=== PATIENT | male | born 1945 | race Caucasian/White ===

== ENCOUNTER 2023-11-03 16:18 | Emergency (ER) | payer MEDICARE, SELFPAY ==
[2023-11-03] VITALS (11 sets, daily range): BP systolic 159–220; BP diastolic 90–109; PULSE 73–86; TEMP 36.6; O2SAT 97–99
--- NOTE | 2023-11-03 16:31 | ECG_ITS ---
[facility] Test Date: 2023-11-03 Pat Name: SHUKRI RDZ Department: Room: - Gender: Male Rn Tele: : 1945 Requested By: Order Number: [id number] Reading MD: TAD MAX Measurements Intervals [place] Rate: 89 P: -[id number] MI: -[id number] QRS: 54 QRSD: 96 T: 30 QT: 396 QTc: 443 Interpretive Statements 1210 Atrial fibrillation 9140 abnormal rhythm ECG No previous ECG available for comparison Electronically Signed On 11-03-2023 23:03:39 EDT by TAD MAX
--- NOTE | 2023-11-03 16:33 | ED_ITS ---
HPI HPI - Head Injury General Chief complaint: Head Injury Stated complaint: Head Injury Time Seen by Provider: 11/03/23 16:21 Source: patient Mode of arrival: walk-in History of Present Illness HPI Narrative: Patient is a 78-year-old male who presents to the emergency department for the evaluation of pain in the top of the head after head injury 5 days ago. He states that he was in a [place] when the top of the door hit him in the top of the head when he leaned out. He had no loss of consciousness or other associated injuries. He states he has been taking Motrin to help with pain and presented to the ER today because he is concerned he is taking too much Motrin. He denies visual changes, neck pain, peripheral paresthesias, chest pain, shortness of breath, vomiting. Patient states he does not have high blood pressure and does not take any medications for high blood pressure although he is noted to be significantly hypertensive at initial interview. Related Data Home Medications ?Medication ?Instructions ?Recorded ?Confirmed ferrous sulfate 325 mg (65 mg 325 mg PO DAILY 11/03/23 11/03/23 iron) tablet (Iron (ferrous sulfate)) Previous Rx's ?Medication ?Instructions ?Recorded metoprolol succinate 50 mg 50 mg PO DAILY #14 tabs 11/03/23 tablet,extended release 24 hr tramadol 50 mg tablet 50 mg PO Q4H PRN pain 3 days #12 11/03/23 tabs Allergies Allergy/AdvReac Type Severity Reaction Status Date / Time No Known Drug Allergies Allergy Verified 11/03/23 16:26 Opioid HPI Opioid Management Most Recent Pain and Opioid Data: Last Pain Scale 5 11/03/23 17:16 Last ED Pain Assessment 11/03/23 17:16 Review of Systems ROS Constitutional Denies: fever or chills Ears, nose, mouth, and throat Denies: throat pain or nasal congestion Cardiovascular Denies: chest pain Respiratory Denies: shortness of breath Gastrointestinal Denies: nausea or vomiting Musculoskeletal Denies: back pain or neck pain Integumentary/Breast Denies: rash Neurological Reports: headache; Denies: numbness in extremities or weakness in extremities Hematologic/Lymphatic Denies: easy bruising or easy bleeding [facility] Medical History (Updated 11/03/23 @ 18:20 by MARIXA Winn) A-fib ?I48.91 - Unspecified atrial fibrillation (ICD-10) H/O: hypertension ?Z86.79 - Personal history of other diseases of the circulatory system (ICD- 10) Exam Narrative Exam Narrative: Gen.: Awake, alert, in no distress Head: Normocephalic, atraumatic; no scalp hematoma, no abrasions or lacerations noted ENT: Moist mucous membranes; C-spine nontender Respiratory: No respiratory distress, lungs clear bilaterally Cardio: Regular rate and rhythm Extremities: Moves extremities equally, no injuries noted Psych: Normal mood and affect Neuro: No focal neuro deficit Skin: Warm, dry, intact Constitutional Vital Signs, click to edit/add: Last Vital Signs Temp 97.9 F 11/03/23 16:27 Pulse 82 11/03/23 17:46 Resp 22 H 11/03/23 17:46 BP 168/104 H 11/03/23 17:46 Pulse Ox 99 11/03/23 17:46 O2 Del Method Room Air 11/03/23 17:15 Course Vital Signs Vital signs: Vital Signs Temperature 97.9 F 11/03/23 16:27 Pulse Rate 80 11/03/23 16:27 Respiratory Rate 18 11/03/23 16:27 Blood Pressure 220/90 H 11/03/23 16:27 Pulse Oximetry 99 11/03/23 16:27 Oxygen Delivery Method Room Air 11/03/23 16:27 Temperature 97.9 F 11/03/23 16:27 Pulse Rate 82 11/03/23 17:46 Respiratory Rate 22 H 11/03/23 17:46 Blood Pressure 168/104 H 11/03/23 17:46 Pulse Oximetry 99 11/03/23 17:46 Oxygen Delivery Method Room Air 11/03/23 17:15 MDM - Head Injury MDM Narrative Medical decision making narrative: Patient noted to be hypertensive on arrival, CT of the brain is unremarkable, chest x-ray shows no evidence of acute cardiopulmonary changes. EKG shows rate controlled atrial fibrillation. Patient states he has a history of this. He did state to nursing staff that he is supposed to be on blood pressure medication but does not like the way it makes him feel. He was given IV labetalol and Vasotec with improvement of his blood pressure. Laboratory studie s within normal limits. Patient is put back on metoprolol for home, short course of analgesics for headache. Follow-up closely with PCP for further evaluation and treatment and return to the ER if symptoms change or worsen. He is resting comfortably with no focal neurodeficits or severe headache on reevaluation. SUPERVISED APC VISIT, PHYSICIAN ATTESTATION: Based on the medical record the care appears appropriate. ? Medical Records Attestation: I reviewed the patient's medical records. Lab Data Attestation: I reviewed the patient's lab results. Labs: Lab Results 11/03/23 Range/Units 16:48 WBC 6.9 (4.0-11.0) 10^3/uL RBC 5.25 (4.70-6.10) 10^6/uL Hgb 15.0 (14.0-18.0) g/dL Hct 47.2 (42.0-54.0) % MCV 89.9 (80.0-94.0) fL MCH 28.6 (25.9-34.0) pg MCHC 31.8 (29.9-35.2) g/dL RDW 17.5 H (11.0-15.0) % Plt Count 199 (150-450) 10^3/uL MPV 11.2 (9.5-13.5) fL Neut % (Auto) 68.4 (43.0-75.0) % Lymph % (Auto) 15.3 L (20.5-60.0) % [place] % (Auto) 12.5 H (1.7-12.0) % Eos % (Auto) 2.5 (0.9-7.0) % Baso % (Auto) 1.0 (0.2-2.0) % Neut # (Auto) 4.7 (1.4-6.5) 10^3/uL Lymph # (Auto) 1.1 L (1.2-3.8) 10^3/uL [place] # (Auto) 0.9 H (0.3-0.8) 10^3/uL Eos # (Auto) 0.2 (0.0-0.7) 10^3/uL Baso # (Auto) 0.1 (0.0-0.1) 10^3/uL Abs Immat Gran (auto) 0.02 (0.00-0.03) 10^3/uL Imm/Tot Granulo (auto) 0.3 (0.0-0.5) % PT 11.2 (9.0-11.6) sec INR 1.06 Sodium 139 (136-145) mmol/L Potassium 4.1 (3.5-5.1) mmol/L Chloride 104 (98-107) mmol/L Carbon Dioxide 31.0 (21.0-32.0) mmol/L Anion Gap 8.1 BUN 26.0 H (7.0-18.0) mg/dL Creatinine 1.55 H (0.70-1.30) mg/dL Est GFR ( Amer) 53 L (>=60) Est GFR (Non-Af Amer) 44 L (>=60) BUN/Creatinine Ratio 16.8 Glucose 97 (74-106) mg/dL Calcium 9.1 (8.5-10.1) mg/dL Total Bilirubin 0.5 (0.2-1.0) mg/dL AST 15 (15-37) U/L ALT 11 L (16-63) U/L Alkaline Phosphatase 71 (46-116) U/L Troponin I High Sens 15.7 (4.0-76.1) pg/mL Total Protein 7.6 (6.4-8.2) g/dL Albumin 3.7 (3.4-5.0) g/dL Globulin 3.9 g/dL Albumin/Globulin Ratio 0.[address] scan - head: Attestation: I have reviewed the pertinent imaging results. Radiologist's impression: ITS Impressions Head CT 11/03/23 17:03 IMPRESSION: No acute intracranial abnormalities. Electronically authenticated by: LUANN ARREDONDO Date: 11/03/2023 17:54 ECG Data Attestation: I personally reviewed and interpreted this ECG as follows: (Atrial fibrillation at a rate of 89, no acute ST elevation or ectopy. EKG reviewed by attending physician) Discharge Plan Discharge Chief Complaint: Head Injury Clinical Impression: Closed head injury, Hypertension Patient Disposition: Home, Self-Care Time of Disposition Decision: 18:20 Condition: Good Prescriptions / Home Meds: New tramadol 50 mg tablet 50 mg PO Q4H PRN (Reason: pain) 3 Days Qty: 12 0RF Rx Instructions: R51.9 metoprolol succinate 50 mg tablet extended release 24 hr 50 mg PO DAILY Qty: 14 0RF No Action ferrous sulfate [Iron (ferrous sulfate)] 325 mg (65 mg iron) tablet 325 mg PO DAILY Print Language: Grenadian Instructions: Head Injury (ED), Hypertension (ED) Additional Instructions: Please follow-up with your doctor for reevaluation of your blood pressure and additional medicine as needed. Referrals: Physician,Non-Staff, [Primary Care Provider] - 1 week
[2023-11-03 16:55] LABS: Basophils Absolute Auto 0.1 10^3/uL (0.0-0.1); Eosinophils Absolute Auto 0.2 10^3/uL (0.0-0.7); Eosinophils Percent Auto 2.5 % (0.9-7.0); Hematocrit 47.2 % (42.0-54.0); Immature Granulocytes Abs Auto 0.02 10^3/uL (0.00-0.03); Immature Granulocytes Pct Auto 0.3 % (0.0-0.5); Lymphocytes Absolute Auto 1.1 10^3/uL (1.2-3.8); Lymphocytes Percent Auto 15.3 % (20.5-60.0); Mean Corpuscular HGB Conc 31.8 g/dL (29.9-35.2); Mean Corpuscular Hemoglobin 28.6 pg (25.9-34.0); Mean Corpuscular Volume 89.9 fL (80.0-94.0); Mean Platelet Volume 11.2 fL (9.5-13.5); Monocytes Absolute Auto 0.9 10^3/uL (0.3-0.8); Monocytes Percent Auto 12.5 % (1.7-12.0); Neutrophils Absolute Auto 4.7 10^3/uL (1.4-6.5); Neutrophils Percent Auto 68.4 % (43.0-75.0); Platelet Count 199 10^3/uL (150-450); Red Blood Count 5.25 10^6/uL (4.70-6.10); Red Cell Distribution Width 17.5 % (11.0-15.0); White Blood Count 6.9 10^3/uL (4.0-11.0)
[2023-11-03] MEDS: LABETALOL HCL 20 MG/4 ML SYRINGE IVP (17:02)
--- NOTE | 2023-11-03 17:03 | CT_ITS ---
The [address] [address] Patient Name: SHUKRI RDZ MRN: [id number] date: 1945 Sex: M Assigned Patient Location: ER Current Patient Location: ER Accession/Order Number: [id number] Exam Date: 11/03/2023 17:00 Report Date: 11/03/2023 17:54 At the request of: ANAHI WEINER Procedure: CT head/brain wo con EXAM: CT scan of the head without contrast. Dose reduction technique used: Automated exposure control and/or adjustment of the mA and/or kV according to patient size and/or use of iterative reconstruction technique. REASON FOR EXAM: Head injury COMPARISON: None FINDINGS: No intracranial hemorrhage, mass effect, midline shift, fractures or evidence of acute ischemic infarct. No hydrocephalus. 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 Moderate generalized cerebral and cerebellar volume loss. Moderate small vessel gliosis. Paranasal sinuses and mastoid air cells are clear. Remainder unremarkable. CT/CT head/brain wo con IMPRESSION: No acute intracranial abnormalities. Electronically authenticated by: LUANN ARREDONDO Date: 11/03/2023 17:54
[2023-11-03] MEDS: ENALAPRILAT DIHYDRATE 1.25 MG/ML VIAL IV (17:09)
[2023-11-03 17:16] LABS: INR 1.06; Prothrombin Time 11.2 sec (9.0-11.6)
[2023-11-03 17:25] LABS: Alanine Aminotransferase 11 U/L (16-63); Albumin Globulin Ratio 0.9; Albumin Level 3.7 g/dL (3.4-5.0); Alkaline Phosphatase 71 U/L (46-116); Anion Gap 8.1; Aspartate Amino Transferase 15 U/L (15-37); BUN Creatinine Ratio 16.8; Bilirubin Total 0.5 mg/dL (0.2-1.0); Calcium 9.1 mg/dL (8.5-10.1); Chloride 104 mmol/L (98-107); Estimated GFR (African America 53 (>=60); Estimated GFR (Non-African Ame 44 (>=60); Globulin 3.9 g/dL; Glucose 97 mg/dL (74-106); Potassium 4.1 mmol/L (3.5-5.1); Sodium 139 mmol/L (136-145); Total Protein 7.6 g/dL (6.4-8.2)
[2023-11-03 17:27] LABS: Troponin I High Sensitivity 15.7 pg/mL (4.0-76.1)
--- NOTE | 2023-11-03 17:51 | PC.NURSE ---
i walked into this patient's room to find patient awake and alert sitting upright on the bed reading a note pad. I did introduced myself to this patient and patient awake that we are waiting on all of the test results to come back. this patient voices no needs and shows no signs of distress.
--- NOTE | 2023-11-03 17:55 | XR_ITS ---
The [address] [address] Patient Name: SHUKRI RDZ MRN: [id number] date: 1945 Sex: M Assigned Patient Location: ER Current Patient Location: ED.MAIN Accession/Order Number: [id number] Exam Date: 11/03/2023 17:50 Report Date: 11/03/2023 18:28 At the request of: ANAHI WEINER Procedure: XR chest 1V Exam: Radiographs: XR chest 1V Reason for exam: Hypertension Comparison: None XR/XR chest 1V IMPRESSION: Multiple old bilateral rib fractures. Chest is otherwise unremarkable. Electronically authenticated by: LUANN ARREDONDO Date: 11/03/2023 18:28
== END 2023-11-03 18:52 | disposition home or self-care (01) ==
PROVIDERS: Physician Assistant; Emergency Provider Emergency Medicine
DX: S09.8XXA Other specified injuries of head, initial encounter (principal); W22.8XXA Striking against or struck by other objects, initial encounter; I10 Essential (primary) hypertension; I48.91 Unspecified atrial fibrillation
CPT/HCPCS: 36415; 70450; 71045; 80053; 84484; 85025; 85610; 93005; 96374; 96375; 99285; J1920